=== PATIENT | female | born 1945 | race Caucasian/White ===

== ENCOUNTER 2018-03-30 12:06 | Inpatient (IN) | payer MEDICARE ==
[~2018-03-30] VITALS: Ht 162.6 cm; Wt 53.5 kg
[2018-03-30] MEDS ORDERED: ASPIRIN 81 MG CHEW TAB PO ONE ×2 (13:15→17:15)
[2018-03-30 14:24] LABS: BASOPHILS % 0.9 % (0.0-1.0); EOSINOPHILS % 0.4 % (0.0-6.0); HEMATOCRIT 36.8 % (34.2-44.1); HEMOGLOBIN 12.2 g/dL (12.0-16.0); LYMPHOCYTES # (AUTO) 0.8 (1.0-3.2); LYMPHOCYTES % 16.9 % (18.0-39.1); MEAN CORPUSCULAR HEMOGLOBIN 26.2 pg (28-32); MEAN CORPUSCULAR HGB CONC 33.2 g/dL (31-35); MEAN CORPUSCULAR VOLUME 79.1 fL (81-99); MONOCYTES # (AUTO) 0.3 (0.2-0.8); MONOCYTES % 7.4 % (4.4-11.3); NEUTROPHILS # (AUTO) 3.4 (2.1-6.9); NEUTROPHILS % 74.2 % (38.7-80.0); PLATELET COUNT 282 x10e3/uL (140-360); RED BLOOD COUNT 4.65 x10e6/uL (3.6-5.1); RED CELL DISTRIBUTION WIDTH 13.1 % (11.7-14.4)
[2018-03-30 14:29] LABS: INR 1.11; PARTIAL THROMBOPLASTIN TIME 30.4 seconds (23.8-35.5); PROTHROMBIN TIME 13.5 seconds (11.9-14.5)
[2018-03-30 14:34] LABS: BILIRUBIN,URINE NEGATIVE (NEGATIVE); CLARITY,URINE SL CLOUDY (CLEAR); COLOR,URINE YELLOW (YELLOW); KETONES,URINE NEGATIVE (NEGATIVE); LEUKOCYTE ESTERASE ,URINE TRACE (NEGATIVE); NITRITE,URINE NEGATIVE (NEGATIVE); PROTEIN,URINE DIPSTICK TRACE (NEGATIVE); URINE UROBILINOGEN 0.2 mg/dL (0.2 - 1)
[2018-03-30 14:39] LABS: ALBUMIN 4.1 g/dL (3.5-5.0); ALBUMIN/GLOBULIN RATIO 1.1 (0.8-2.0); ANION GAP 19.4 mmol/L (8-16); CALCIUM 10.6 mg/dL (8.4-10.2); CREATININE, SERUM 2.65 mg/dL (0.57-1.11); POTASSIUM 3.4 mmol/L (3.5-5.1)
[2018-03-30 14:43] LABS: BACTERIA,URINE MANY /HPF
[2018-03-30 14:45] LABS: CREATINE KINASE MB 1.8 ng/mL (0-5.0)
[2018-03-30] MEDS ORDERED: CLONIDINE HCL 0.1 MG TAB PO ONE (14:45)
[2018-03-30 15:32] LABS: FREE T4 (FREE THYROXINE) 1.23 ng/dL (0.9-1.8); THYROID STIMULATING HORMONE 0.05 uIU/mL (0.350-4.940)
[2018-03-30] MEDS ORDERED: CEFTRIAXONE SOD 1 GM VIAL IM ONE (15:45)
[2018-03-30] MEDS ORDERED: OMEPRAZOLE40 MG PO (16:08)
[2018-03-30] MEDS ORDERED: METFORMIN HCL500 MG PO (16:08)
[2018-03-30] MEDS ORDERED: ULTRAM50 MG PO (16:08)
[2018-03-30] MEDS ORDERED: OXYBUTYNIN CHLOR5 MG PO (16:08)
[2018-03-30] MEDS ORDERED: NORCO 5-325 TA1 EACH PO (16:08)
[2018-03-30] MEDS ORDERED: LASIX40 MG PO (16:18)
[2018-03-30] MEDS ORDERED: LEFLUNOMIDE10 MG (16:18)
[2018-03-30] MEDS ORDERED: EDARBYCLOR 40-1 EAC1 (16:18)
[2018-03-30] MEDS ORDERED: COREG12.5 MG PO (16:18)
[2018-03-30] MEDS ORDERED: LEVOTHYROXINE112 MCG PO (16:18)
[2018-03-30] MEDS ORDERED: ASPIRIN81 MG PO (16:18)
[2018-03-30] MEDS ORDERED: PLAVIX75 MG PO (16:18)
[2018-03-30] MEDS ORDERED: TURMERIC1 GM (16:18)
[2018-03-30] MEDS ORDERED: GABAPENTIN100 MG (16:18)
[2018-03-30] MEDS ORDERED: ZETIA10 MG PO (16:18)
[2018-03-30] MEDS ORDERED: SODIUM CHLORIDE 0.9% 1000ML 1,000 ML IV SCH (17:15)
[2018-03-30] MEDS ORDERED: CLONIDINE HCL 0.1 MG TAB PO PRN (17:15)
[2018-03-30] MEDS ORDERED: ONDANSETRON HCL INJ 2 MG/ML VIAL IV PRN (17:15)
--- NOTE | 2018-03-30 18:25 | Diagnostic Imaging Report ---
EXAMINATION: Head CT HISTORY: Ataxia. Weakness. Hypertension, diabetes COMPARISON: None. TECHNIQUE: Multidetector axial images were obtained without contrast from the foramen magnum to the vertex . The images were reconstructed using brain and bone algorithms. Thin section brain images were reformatted into coronal and sagittal planes. Image quality: Motion/streaking artifact limits the evaluation of the skull base and posterior cranial fossa. Dose modulation, iterative reconstruction, and/or weight based adjustment of the mA/kV was utilized to reduce the radiation dose to as low as reasonably achievable. FINDINGS: Parenchyma: 1. Minimal periventricular white matter hypodensities, likely age-related minimal chronic microvascular changes. 2. No mass or hemorrhage. No CT evidence of acute territorial vascular insult. Extra-axial spaces:No abnormal density. No extra-axial fluid collections Brain volume: Normal for age. Ventricles: No hydrocephalus or displacement. Arteries: No density suggestive of thrombus. Dural sinuses: No abnormal density. Extra-axial spaces: No abnormal density. Foramen magnum: No mass, Chiari malformation, or basilar invagination. Sella: No obvious mass. Paranasal/mastoid sinuses: Imaged portions unremarkable. Skull/Scalp: No lytic or blastic lesions. No fractures. IMPRESSION: No acute intracranial abnormality. Particularly no hemorrhage or acute cortical infarct. Signed by: Dr. Jennifer Sandhu M.D. on 03/30/2018 6:21 PM
[2018-03-30 21:00] VITALS: BP 182/107
[2018-03-30] MEDS: CARVEDILOL 3.125 MG TAB PO SCH (21:27)
[2018-03-30 22:00] VITALS: BP 182/107
--- NOTE | 2018-03-30 22:03 | History and Physical ---
REFERRING PHYSICIAN: Dr. Noble Kumari CHIEF COMPLAINT: Ataxia and disorientation. HISTORY OF PRESENT ILLNESS: The patient is a 73-year-old woman. She has a history of coronary artery disease and has required CABG and stent placements previously. She also has a history of hypertension, thyroid disease and possible diabetes. Over the past several days, she has had some stumbling. Apparently she fell a couple of times. She also feels weak and lightheaded. She reports some diarrhea, but denies any abdominal pain or nausea. She has no fevers. The patient came to the emergency department. Her blood test showed an elevated creatinine of 2.65 along with a calcium of 10.6. The patient denies any prior renal problems. PAST SURGICAL HISTORY 1. Status post coronary artery bypass grafting. 2. Status post cardiac stents several years ago. PAST MEDICAL HISTORY 1. Hypertension. 2. Thyroid disease. 3. Coronary artery disease. 4. No prior congestive heart failure. 5. No prior kidney disease. SOCIAL HISTORY: The patient is not a smoker. She is not a drinker. ALLERGIES: THE PATIENT IS ALLERGIC TO PROMETHAZINE AND DIPHENHYDRAMINE. FAMILY HISTORY: Family history is noncontributory. REVIEW OF SYSTEMS: She does report some disorientation along with some lightheadedness. She feels weak. She does not complain of headache. She has no neck pain. She has no chest pain. She has no difficulty breathing. She did have some diarrhea, but no nausea or vomiting. She has no leg edema. She has no focal neurological findings. IMPRESSION 1. Acute kidney injury. 2. Ataxia and frequent fall. 3. Hypercalcemia. 4. Hypertension. 5. Coronary artery disease. 6. Diabetes. PLAN 1. The patient will receive intravenous fluids. 2. Recheck her BUN, creatinine and calcium in the morning. 3. Patient will have an echocardiogram. 4. Repeat EKG and serial enzymes. 5. CT scan of the head. 6. Hold tramadol, [place] or any other medications that may be contributing to unsteadiness. Job#: [id number] [employer]
[2018-03-30] MEDS: ZOLPIDEM TARTRATE 5 MG TAB PO PRN (22:49)
[2018-03-30 23:05] LABS: CREATINE KINASE MB 1.6 ng/mL (0-5.0)
[2018-03-31] VITALS (9 sets, daily range): BP systolic 153–195; BP diastolic 68–92
[2018-03-31] MEDS: CLONIDINE HCL 0.2 MG TAB PO PRN ×2 (04:22→15:52)
[2018-03-31] MEDS: CEFTRIAXONE SOD 1 GM VIAL IV SCH ×2 (04:30→17:00)
[2018-03-31] MEDS: LEVOTHYROXINE SODIUM 112 MCG TAB PO SCH (04:30)
[2018-03-31] MEDS: LEVOTHYROXINE SODIUM 25 MCG TABLET PO SCH (04:30)
[2018-03-31 04:47] LABS: BASOPHILS # (AUTO) 0.1 (0.0-0.1); EOSINOPHILS # (AUTO) 0.1 (0.0-0.4); EOSINOPHILS % 1.4 % (0.0-6.0); HEMATOCRIT 31.9 % (34.2-44.1); HEMOGLOBIN 10.5 g/dL (12.0-16.0); LYMPHOCYTES # (AUTO) 1.4 (1.0-3.2); LYMPHOCYTES % 27.8 % (18.0-39.1); MEAN CORPUSCULAR HEMOGLOBIN 26.2 pg (28-32); MEAN CORPUSCULAR HGB CONC 32.9 g/dL (31-35); MEAN CORPUSCULAR VOLUME 79.6 fL (81-99); MONOCYTES # (AUTO) 0.6 (0.2-0.8); MONOCYTES % 10.7 % (4.4-11.3); NEUTROPHILS % 58.9 % (38.7-80.0); PLATELET COUNT 270 x10e3/uL (140-360); RED BLOOD COUNT 4.01 x10e6/uL (3.6-5.1)
[2018-03-31 05:14] LABS: ALBUMIN 3.7 g/dL (3.5-5.0); ALBUMIN/GLOBULIN RATIO 1.3 (0.8-2.0); ANION GAP 16.6 mmol/L (8-16); CALCIUM 9.5 mg/dL (8.4-10.2); CREATININE, SERUM 1.86 mg/dL (0.57-1.11); POTASSIUM 3.6 mmol/L (3.5-5.1)
[2018-03-31 05:27] LABS: CREATINE KINASE MB 4.9 ng/mL (0-5.0)
[2018-03-31] MEDS ORDERED: POTASSIUM CHLORIDE 20 MEQ TAB CR PO ONE (08:00)
[2018-03-31] MEDS ORDERED: LEVOTHYROXINE SODIUM 112 MCG TAB PO SCH (09:00)
[2018-03-31] MEDS ORDERED: CARVEDILOL 12.5 MG TAB PO SCH (09:00)
[2018-03-31] MEDS: CARVEDILOL 3.125 MG TAB PO SCH ×2 (09:57→17:00)
[2018-03-31] MEDS: PANTOPRAZOLE SOD 40 MG TABEC PO SCH (09:57)
[2018-03-31] MEDS: GABAPENTIN 100 MG CAP PO SCH ×2 (09:57→17:00)
[2018-03-31] MEDS: ASPIRIN 81 MG CHEW TAB PO SCH (09:57)
[2018-03-31] MEDS: EZETIMIBE 10 MG TAB PO SCH (09:57)
[2018-03-31] MEDS: OXYBUTYNIN CHLORIDE 5 MG TAB PO SCH (09:57)
[2018-03-31] MEDS: SODIUM CHLORIDE 0.45% 1,000 ML IV SCH ×2 (09:57→15:30)
[2018-03-31] MEDS: CLOPIDOGREL BISULFATE 75 MG TAB PO SCH (09:57)
[2018-03-31] MEDS ORDERED: LORAZEPAM INJ 2 MG/ML VIAL IV STA (12:08)
--- NOTE | 2018-03-31 12:33 | Consultation ---
DATE OF CONSULTATION: March 31, 2018 CARDIOLOGY CONSULTATION CLINICAL HISTORY: This is a 73-year-old white woman referred by Dr. Hayden Rea for cardiovascular evaluation in the setting of ataxia and disorientation, with history of having previous coronary stenting and coronary artery bypass surgery. This patient has hyperthyroidism treated with I-131. Subsequently, she became hypothyroid and was taking thyroid replacement, followed by Dr. Nola Agustin at [facility]. She, however, lives in [place] and comes here for her doctor's visits. On the way here, she apparently became disoriented, weak, dizzy, unsteady on her feet. She decided to come to our emergency room, where EKG showed sinus rhythm and right bundle-branch block. The left bundle-branch block apparently is chronic and she has had it before. She is being admitted for further evaluation and treatment. Her creatinine was 2.65. PAST MEDICAL HISTORY: Remarkable for multiple coronary stents, a total of 9. Some were done in [place]. Some were done in [place], [place]. Most recently, she was in [place] 5 years ago and had bypass surgery. Since the bypass surgery, she apparently has had no chest pain. She denies any previous myocardial infarction. She does have a chronic left bundle-branch block. There is history of hypertension, the above-mentioned thyroid condition, no prior kidney disease. PERSONAL AND SOCIAL HISTORY: Denies smoking or drinking. ALLERGIES: PROMETHAZINE AND DIPHENHYDRAMINE. FAMILY HISTORY: Noncontributory. REVIEW OF SYSTEMS: Negative. PHYSICAL EXAMINATION GENERAL: She is alert and coherent, appears to be comfortable. VITAL SIGNS: Stable. CARDIAC: Jugular veins are not distended. S1 and S2 were regular. There is no appreciable murmur. LUNGS: Clear. ABDOMEN: Soft. Bowel sounds are present. EXTREMITIES: No cyanosis, clubbing or edema. IMPRESSION 1. Stable cardiovascular status, status post previous coronary artery bypass surgery 5 years ago in [place] and 9 previous stents elsewhere in [place] and in [place], [place]. 2. Hypertension. 3. History of hypothyroidism, treated with I-131, currently hypothyroid. 4. Weight loss and lymphadenopathy requiring a CT scan of the pelvis at [facility]. 5. Chronic kidney disease. Creatinine 2.65. 6. Ataxia, fall, disorientation. 7. Diabetes. 8. Hypercalcemia. RECOMMENDATIONS: Treatment for hypertension. Continue previous cardiac medications. Job#: [id number] cc:HAYDEN REA M.D.
--- NOTE | 2018-03-31 13:39 | Diagnostic Imaging Report ---
Examination: MRI BRAIN WITHOUT CONTRAST History: 73-year-old female with weakness. Comparison studies: Head CT performed March 30, 2018. Technique: Sagittal T2; axial DWI, FLAIR, GRE or SWI, T1, Coronal FLAIR. Intravenous contrast: None Findings: Motion artifact. Scalp: No abnormal signal. No masses. Bone marrow: Normal in signal intensity. Brain volume: Moderate volume loss. Ventricles: No hydrocephalus. Extra-axial spaces: No abnormalities. Parenchyma: There are subtle confluent areas of T2/FLAIR hyperintensity in the periventricular and subcortical white matter, nonspecific. No masses, hemorrhage, acute or chronic vascular insults. Suprasellar and sellar region: No abnormalities. Craniocervical junction: No abnormalities. The foramen magnum is patent. No Chiari malformations. Vessels: Normal flow-voids in the arteries and sinuses. Additional findings:Bilateral slitlike orbital lenses. IMPRESSION: 1. Despite limitation, no acute intracranial abnormality. 2. Mild chronic microvascular ischemic change Signed by: Dr. Shayy Javed M.D. on 03/31/2018 1:35 PM
--- NOTE | 2018-03-31 14:49 | Consultation ---
DATE OF CONSULTATION: March 31, 2018 NEUROLOGY CONSULTATION HISTORY OF PRESENT ILLNESS: Ms. Wasserman is a 73-year-old, [id number] woman with past medical history significant for hypertension, hyperlipidemia, diabetes mellitus type 2, and coronary artery disease admitted to [facility] on March 30, 2018, with worsening confusion and generalized weakness. Approximately 2 weeks ago, the patient's family members noted the gradual onset of generalized weakness, impairment of balance and an unsteady gait secondary to generalized weakness, and confusion. When asked for further details regarding the patient's confusion, her sister reports the patient was having difficulty recalling which family members she was visiting, repetition of questions, and confusion regarding medications. According to the patient and her sister, this confusion is highly atypical of the patient. Other symptoms reported by the patient include pain with urination, urinary frequency, possible bladder dysfunction, and diarrhea. As stated above, these symptoms began approximately 2 weeks ago and have gradually worsened during that time. Ms. Wasserman was brought to the [facility] on March 30, 2018, for further evaluation of her symptoms. Upon arrival in the Emergency Center, the patient was afebrile with a blood pressure of 177/113 mmHg and a pulse of 104 beats per minute. Her neurological examination was documented as being nonfocal. A CT of the brain without contrast was performed while the patient was in the Emergency Center. This study did not reveal large territorial ischemia or hemorrhage. Ms. Wasserman was admitted to [facility] on March 30, 2018, as an inpatient for further evaluation and treatment of her symptoms. REVIEW OF SYSTEMS: Diarrhea, pain with urination, urinary urgency, confusion, generalized weakness, impairment of balance and gait, neck pain. Otherwise, the 12-point review of systems is negative. PAST MEDICAL HISTORY: Hypertension, hyperlipidemia, diabetes mellitus type 2, coronary artery disease, thyroid disease, osteoarthritis, gastroesophageal reflux disease, anxiety disorder, fibromyalgia, obstructive sleep apnea. PAST SURGICAL HISTORY: Multiple cardiac stents, 1-vessel CABG, total hysterectomy, cholecystectomy, appendectomy, bilateral cataract removal. PAST HOSPITALIZATIONS: For surgeries/procedures as listed, hypothyroidism, childbirth times 2. FAMILY MEDICAL HISTORY: Patient's sister reports a strong family medical history of hypertension, hyperlipidemia, and coronary artery disease. Patient's paternal and maternal grandparents are . Their medical histories are unknown. The patient's father is from coronary artery disease with myocardial infarction. Her mother is from bladder cancer. Ms. Wasserman had 5 siblings, 2 brothers and 3 sisters. One sister is alive and healthy. The remaining siblings are . Two brothers are from coronary artery disease with myocardial infarctions. One sister is from coronary artery disease. A 2nd sister is from a pulmonary embolus. Ms. Wasserman has 2 daughters, both of whom are alive and healthy. SOCIAL HISTORY: Patient is . She is retired. Ms. Wasserman does not report current or prior tobacco, alcohol, or recreational drug use. HOME MEDICATIONS: Please see the list available on the electronic medical record system. ALLERGIES: BENADRYL, PHENERGAN. NO KNOWN FOOD ALLERGIES. NO KNOWN ALLERGY TO LATEX. NO KNOWN ALLERGIES TO IODINE OR OTHER CONTRAST MATERIALS. PHYSICAL EXAMINATION VITAL SIGNS: Height 64 inches, weight 116 pounds. BMI 19.9 kg per meter squared. Blood pressure 186/92 mmHg. Pulse 78 beats per minute. Respiratory rate 17 breaths per minute. Oxygen saturation 97% on room air. GENERAL: The patient is awake and alert. Does not appear distressed. HEENT: Normocephalic, atraumatic. Pupils are surgical. Moist mucous membranes. NECK: Supple. No appreciable thyromegaly. No appreciable carotid bruits. CARDIOVASCULAR: S1 and S2, regular rate and rhythm. Positive systolic ejection murmur. RESPIRATORY: Clear to auscultation bilaterally. No wheezes, rhonchi or rales. EXTREMITIES: The skin is warm and dry. No clubbing, cyanosis, or edema. The posterior tibial and dorsalis pedis pulses are 1+ and symmetric. SKIN: No rashes or lesions. NEUROLOGIC EXAMINATION MEMORY/ATTENTION: The patient is awake and alert. Oriented to person, place (hospital, city, state), time (month, year), and situation. CRANIAL NERVES: Cranial nerve I: Not tested. Cranial nerves II, III, IV, and : Pupils are surgical. Extraocular movements intact. No nystagmus. Cranial nerve V: Sensation to light touch and pinprick is intact in the bilateral V1 through V3 distributions. Strength of the temporalis and masseter muscles is within normal limits. Cranial nerve VII: The face is symmetric as are all facial movements. Strength is within normal limits. Cranial nerve VIII: Hearing is diminished to finger rub bilaterally. Cranial nerves IX and X: The soft palate elevates equally and symmetrically. Cranial nerve XI: Normal strength of the bilateral sternocleidomastoid and trapezius muscles. Cranial nerve XII: The tongue protrudes midline and moves symmetrically from side to side. STRENGTH: Bulk is normal. Strength is 5/5 in the bilateral deltoids, biceps, triceps, wrist flexors and extensors, finger flexors and extensors, intrinsic hand muscles, hip flexors, knee flexors and extensors, ankle dorsiflexion and plantar flexion, and intrinsic foot muscles. Tone is normal. DTRs: Deep tendon reflexes are 2+ and symmetric at the triceps, biceps, brachioradialis, and patellas. Deep tendon reflexes are absent and symmetric at the Achilles. Plantar responses are flexor bilaterally. SENSATION: Sensation is intact to light touch and pinprick in both arms and both legs. CEREBELLAR: Zutaei-wmse-qqdthz and heel-engel movements are intact without dysmetria or other impairment. GAIT: Deferred. SPEECH: Spontaneous speech is normal without appreciable dysarthria or aphasia. Repetition is intact. INVOLUNTARY MOVEMENTS: None. PRONATOR DRIFT: Right arm. LABORATORY DATA: The patient's complete metabolic panel is significant for an elevated anion gap of 16.6, an elevated BUN of 36, an elevated creatinine of 1.86, and estimated GFR of 26. The alkaline phosphatase is mildly decreased at 38. Lactic acid is 9.3. Cardiac enzymes are negative times 3 with the exception of an elevated creatine kinase of 219 on the 3rd set of cardiac enzymes. Total cholesterol is 290, triglycerides 181, LDL cholesterol 196, HDL cholesterol 58. TSH 0.050. Free T4 is 1.23. The CBC with differential and platelets reveals a white blood cell count of 5.15 with a normal differential. The hemoglobin and hematocrit are 10.5 and 31.9, respectively. The platelet count is 270. The coagulation profile is within normal limits. Urinalysis revealed trace protein, 1+ blood, trace leukocyte esterase, 11-20 red blood cells, 6-10 white blood cells, no epithelials cells, and many bacteria. A urine culture has grown gram-negative bacilli. Blood cultures drawn on March 30, 2018, are pending. DIAGNOSTIC STUDIES 1. Electrocardiogram, 03/30/2018: Normal sinus rhythm at 87 beats per minute with sinus arrhythmia, left bundle-branch block. 2. CT of the brain without contrast, 03/30/2018: On my review, there is no evidence of recent large territorial ischemia, hemorrhage, mass, or mass effect. Cerebral volumes are appropriate for age. There are findings compatible with mild chronic small vessel ischemic disease. ASSESSMENT AND PLAN: Ms. Wasserman is a 73-year-old ueboo-wjid-aqpjpqzq woman with past medical history as documented admitted to [facility] on March 30, 2018, with confusion, generalized weakness, and gait and balance impairment gradually worsening over a period of two weeks. Patient's neurological examination is nonfocal with the exception of pronator drift in the right arm. Her laboratory data and other diagnostic studies have been reviewed and are documented above. Given the general nature of the patient's symptoms, I would attribute them to a metabolic encephalopathy secondary to urinary tract infection with or without superimposed acute kidney injury. However, the presence of pronator drift in the right arm is suggestive of central nervous system pathology, probably a stroke given the patient's multiple vascular risk factors. RECOMMENDATIONS 1. An MRI of the brain without contrast will be ordered due to the presence of pronator drift in the right arm. 2. Additional laboratory data will be ordered to evaluate for other treatable causes of confusion. These studies will include: Ammonia level, vitamin B1 level, vitamin B12 level, and rapid plasma reagin. 3. Limit the use of sedative/hypnotic and pain medications as these medicines are known to alter the patient's sensorium. 4. Utilize environmental cues to prevent the occurrence of delirium. 5. Defer treatment of the remaining medical comorbidities to the primary and other services following the patient. Thank you for this consultation. I will continue to follow the patient while she remains in the hospital. Time spent: 70 minutes. Job#: [id number] LUIS BANKS
--- NOTE | 2018-03-31 17:20 | Cardiology Report ---
DATE OF STUDY: March 30, 2018 ECHOCARDIOGRAM M-MODE: Top normal left atrial size. Normal left ventricular wall thickness. Diminished left ventricular contractility. Paradoxical septal wall motion. Normal mitral and aortic valves. No pericardial effusion. SECTOR SCAN: Top normal left atrial size. Normal left ventricular wall thickness. Diminished left ventricular contractility. Ejection fraction 35% to 40%. Mitral valve appears to be normal. Aortic valve is sclerotic. Tricuspid valve appears to be normal. There is no pericardial effusion. CARDIAC DOPPLER STUDY WITH COLOR: Evidence of diastolic dysfunction. Trace mitral and tricuspid regurgitation. Aortic velocity is 1.4 meters per second. CONCLUSIONS 1. Suboptimal study with poor image quality. 2. Left ventricular ejection fraction is approximately 35% to 40%. 3. Borderline left ventricular hypertrophy. 4. Aortic sclerosis without stenosis. 5. Trace mitral and tricuspid regurgitation. 6. Top normal left atrial size. 7. Evidence of diastolic dysfunction. Job#: [id number] cc:ZELALEM JOHN M.D.
[2018-04-01] VITALS (8 sets, daily range): BP systolic 128–193; BP diastolic 74–100
[2018-04-01] MEDS: SODIUM CHLORIDE 0.45% 1,000 ML IV SCH ×4 (00:42→23:30)
[2018-04-01] MEDS: ZOLPIDEM TARTRATE 5 MG TAB PO PRN ×2 (00:56→22:36)
[2018-04-01 05:19] LABS: BASOPHILS % 0.9 % (0.0-1.0); EOSINOPHILS # (AUTO) 0.1 (0.0-0.4); EOSINOPHILS % 2.2 % (0.0-6.0); HEMATOCRIT 31.1 % (34.2-44.1); HEMOGLOBIN 10.2 g/dL (12.0-16.0); LYMPHOCYTES # (AUTO) 1.5 (1.0-3.2); LYMPHOCYTES % 32.5 % (18.0-39.1); MEAN CORPUSCULAR HEMOGLOBIN 26.3 pg (28-32); MEAN CORPUSCULAR HGB CONC 32.8 g/dL (31-35); MEAN CORPUSCULAR VOLUME 80.2 fL (81-99); MONOCYTES # (AUTO) 0.5 (0.2-0.8); NEUTROPHILS # (AUTO) 2.5 (2.1-6.9); NEUTROPHILS % 54.2 % (38.7-80.0); PLATELET COUNT 254 x10e3/uL (140-360); RED BLOOD COUNT 3.88 x10e6/uL (3.6-5.1); RED CELL DISTRIBUTION WIDTH 13.1 % (11.7-14.4)
[2018-04-01 05:50] LABS: ALBUMIN 3.6 g/dL (3.5-5.0); ALBUMIN/GLOBULIN RATIO 1.3 (0.8-2.0); ANION GAP 15.4 mmol/L (8-16); CALCIUM 9.2 mg/dL (8.4-10.2); CREATININE, SERUM 1.21 mg/dL (0.57-1.11); POTASSIUM 3.4 mmol/L (3.5-5.1)
[2018-04-01] MEDS: LEVOTHYROXINE SODIUM 25 MCG TABLET PO SCH (06:21)
[2018-04-01] MEDS: LEVOTHYROXINE SODIUM 112 MCG TAB PO SCH (06:21)
[2018-04-01] MEDS ORDERED: POTASSIUM CHLORIDE 20 MEQ TAB CR PO NR (07:45)
[2018-04-01] MEDS: CARVEDILOL 3.125 MG TAB PO SCH ×2 (08:03→17:00)
[2018-04-01] MEDS: OXYBUTYNIN CHLORIDE 5 MG TAB PO SCH (08:03)
[2018-04-01] MEDS: GABAPENTIN 100 MG CAP PO SCH ×2 (08:03→17:01)
[2018-04-01] MEDS: ASPIRIN 81 MG CHEW TAB PO SCH (08:03)
[2018-04-01] MEDS: CEFTRIAXONE SOD 1 GM VIAL IV SCH ×2 (08:03→17:00)
[2018-04-01] MEDS: CLOPIDOGREL BISULFATE 75 MG TAB PO SCH (08:03)
[2018-04-01] MEDS: PANTOPRAZOLE SOD 40 MG TABEC PO SCH (08:03)
[2018-04-01] MEDS: EZETIMIBE 10 MG TAB PO SCH (08:04)
--- NOTE | 2018-04-01 08:13 | Progress Note ---
DATE: 04/01/2018 SUBJECTIVE: The patient feels better with hydration. Her diarrhea has improved although she reports history of chronic gastrointestinal problems. She did see professional poker player several years ago and is scheduled to see another one as an outpatient. The patient was evaluated by cardiology and neurology yesterday. The neurologist detected a pronator drift and recommended an MRI. This has been done, but the results from the radiologist are still pending. OBJECTIVE: VITALS: The patient is afebrile. The vital signs are stable. HEENT: Shows no facial swelling or erythema. The oropharynx is normal. LYMPHATIC: Shows no submandibular, subacromial, supraclavicular adenopathy. CARDIAC: Regular rate and rhythm with normal S1 and S2. There are no murmurs or rubs seen on auscultation. LUNGS: Reveal clear breath sounds bilaterally. ABDOMEN: Soft and nontender. There is no rebound, no guarding. EXTREMITIES: No leg edema or calf tenderness. There is no cyanosis or clubbing. SKIN: No rashes. IMPRESSION: 1. Urinary tract infection with gram-negative rods and sepsis. 2. Acute kidney injury. 3. Metabolic encephalopathy. 4. Coronary artery disease. 5. Chronic gastrointestinal problems. PLAN: 1. Continue current antibiotics and IV hydration. 2. Await results of MRI. 3. Repeat BUN, creatinine, and electrolytes tomorrow. 4. Tentative discharge tomorrow. 5. Nutritional evaluation by dietary. 6. Gastroenterology evaluation as an outpatient. Job#: [id number] ABISAI BANKS
[2018-04-01] MEDS: CLONIDINE HCL 0.2 MG TAB PO PRN (11:55)
[2018-04-02] VITALS (7 sets, daily range): BP systolic 154–170; BP diastolic 75–99
[2018-04-02] MEDS: LEVOTHYROXINE SODIUM 112 MCG TAB PO SCH (05:07)
[2018-04-02] MEDS: LEVOTHYROXINE SODIUM 25 MCG TABLET PO SCH (05:07)
[2018-04-02] MEDS: CEFTRIAXONE SOD 1 GM VIAL IV SCH ×2 (05:07→16:26)
[2018-04-02 05:24] LABS: BASOPHILS # (AUTO) 0.1 (0.0-0.1); BASOPHILS % 1.1 % (0.0-1.0); EOSINOPHILS # (AUTO) 0.1 (0.0-0.4); EOSINOPHILS % 2.7 % (0.0-6.0); HEMATOCRIT 33.6 % (34.2-44.1); HEMOGLOBIN 10.9 g/dL (12.0-16.0); LYMPHOCYTES # (AUTO) 1.8 (1.0-3.2); LYMPHOCYTES % 34.3 % (18.0-39.1); MEAN CORPUSCULAR HEMOGLOBIN 26.3 pg (28-32); MEAN CORPUSCULAR HGB CONC 32.4 g/dL (31-35); MONOCYTES # (AUTO) 0.5 (0.2-0.8); MONOCYTES % 9.7 % (4.4-11.3); NEUTROPHILS # (AUTO) 2.7 (2.1-6.9); NEUTROPHILS % 51.6 % (38.7-80.0); PLATELET COUNT 266 x10e3/uL (140-360); RED BLOOD COUNT 4.15 x10e6/uL (3.6-5.1); RED CELL DISTRIBUTION WIDTH 12.9 % (11.7-14.4)
[2018-04-02 05:47] LABS: ALBUMIN 3.8 g/dL (3.5-5.0); ALBUMIN/GLOBULIN RATIO 1.3 (0.8-2.0); ANION GAP 15.9 mmol/L (8-16); CALCIUM 9.4 mg/dL (8.4-10.2); CREATININE, SERUM 1.14 mg/dL (0.57-1.11); MAGNESIUM 1.6 MG/DL (1.3-2.1); POTASSIUM 3.9 mmol/L (3.5-5.1)
--- NOTE | 2018-04-02 09:02 | Progress Note ---
DATE: 04/02/18 The patient feels better. She still complains of diarrhea. She states that the diarrhea has been ongoing for some time, and she has lost 20-30 pounds. She does not complain of fever or abdominal pain. PHYSICAL EXAMINATION VITALS: The patient is afebrile. The vital signs are stable. HEENT: Shows no facial swelling or edema. CARDIAC: Reveals a regular rate and rhythm with a normal S1 and S2. LUNGS: Auscultation of the lungs reveals clear breath sounds bilaterally. ABDOMEN: Soft and tender. There is no rebound or guarding. EXTREMITIES: Shows no leg edema or calf tenderness. RADIOGRAPHIC DATA: MRI shows some microvascular disease, but no evidence of stroke. IMPRESSION 1. Subacute diarrhea with weight loss. 2. Moderate protein calorie malnutrition. 3. Urinary tract infection with Escherichia coli and secondary sepsis. 4. Acute kidney injury. 5. Metabolic encephalopathy. 6. Anemia, unspecified. 7. Ataxia. PLAN 1. The patient will be evaluated by gastroenterology. 2. We are awaiting completion of her nutritional evaluation. 3. Continue IV fluids. 4. Continue antibiotics. 5. Physical therapy and out of bed as tolerated. The case was discussed with the patient and family. Job#: [id number] BRIDGER BANKS
[2018-04-02] MEDS: ASPIRIN 81 MG CHEW TAB PO SCH (09:05)
[2018-04-02] MEDS: PANTOPRAZOLE SOD 40 MG TABEC PO SCH (09:05)
[2018-04-02] MEDS: EZETIMIBE 10 MG TAB PO SCH (09:06)
[2018-04-02] MEDS: CLOPIDOGREL BISULFATE 75 MG TAB PO SCH (09:06)
[2018-04-02] MEDS: OXYBUTYNIN CHLORIDE 5 MG TAB PO SCH (09:06)
[2018-04-02] MEDS: GABAPENTIN 100 MG CAP PO SCH ×2 (09:06→16:26)
[2018-04-02] MEDS: CARVEDILOL 3.125 MG TAB PO SCH ×2 (09:06→16:26)
[2018-04-02] MEDS: SODIUM CHLORIDE 0.45% 1,000 ML IV SCH ×2 (10:13→15:30)
[2018-04-02] MEDS: SUCRALFATE 1 GM TAB PO SCH ×2 (11:58→16:26)
[2018-04-02] MEDS: CLONIDINE HCL 0.2 MG TAB PO PRN (12:37)
--- NOTE | 2018-04-02 17:29 | Consultation ---
DATE OF CONSULTATION: April 01, 2018 She is a 73-year-old lady with a past history of coronary artery disease, status post cardiac stents, status post cardiac bypass, hyperthyroid disease, previous myocardial infarction, hypertension, diabetes. She was admitted with symptoms of ataxia and unsteady gait. Evaluated by neurology. I was asked to see her for weight loss, recent of 40 pounds since September of this year, nausea and vomiting, heartburn, acid reflux, and loose bowel movements up to 3-5 a day, liquid. No blood, but she described it as black stool. No recent use of antibiotics. She does not feel bloated. She has not felt gassy or passing a lot of gas. She claimed a year ago she had some upper or maybe lower endoscopy done by GI, Dr. Scott at [phone]. She does not recall any results. SOCIAL HISTORY: Does not smoke or drink. FAMILY HISTORY: Hyperlipidemia, coronary artery disease. SURGICAL HISTORY: She had a complete hysterectomy, open cholecystectomy, appendectomy, and bilateral cataracts in addition to her heart surgery. ALLERGIES: SHE IS ALLERGIC TO PROMETHAZINE AND DIPHENHYDRAMINE. CURRENT MEDICATIONS: Clonidine, Protonix, Carafate, Coreg, Ditropan, Neurontin, Zetia, Rocephin, Synthroid, Zofran, and Ambien. PHYSICAL EXAMINATION GENERAL: Awake, alert and oriented. VITALS: Temperature 96.8, pulse 86, respiratory rate 21, blood pressure 162/92. HEENT: Normal sclerae. NECK: Supple. No nodes or mass. LUNGS: Clear to auscultation. HEART: Regular. Occasional irregular beat. ABDOMEN: Soft and nontender. No masses. No acute signs. No organomegaly. Bowel sounds present. EXTREMITIES: No edema. INSPECTOR FILTER TIP: Motor function grossly intact. LABS: Hemoglobin 10, hematocrit 33. White cell count 5 and platelets 266,000. RPR negative. Urine culture positive for E. coli. Blood culture negative. B12 normal. Comprehensive panel normal, except for creatinine of 1.14 and GFR 47. PT and PTT normal. TSH is low. IMPRESSION: A 40-pound weight loss, alarming complaint. Will review her records from the gastroenterology from last year to make sure she had a full colonoscopy. In addition, will schedule her for computerized tomography of the abdomen with contrast. Her GFR is 47. According to the radiology service, they have hydrate her first hoping to improve her GFR before they give her Iodine. As far as the diarrhea is concerned, it could be related to previous cholecystectomy or could be related to infectious process. PLAN: For her, is to check her fecal leukocytes, fecal calprotectin, fecal ova and parasites, fecal culture, fecal Clostridium difficile. Start her on Questran 1 packet twice a day. Start on probiotic. As far as the anemia is concerned, will obtain iron study, reticulocyte, and RBC and folate. Again, will review her GI workup. As far as the melanotic stool, will guaiac the stool. Nothing to do for now unless she has drop in hemoglobin and hematocrit. Otherwise, we can repeat her upper endoscopy and could be done an elective basis. Job#: [id number] BRIDGER
[2018-04-02] MEDS: LACTOBACILLUS ACIDOPHILUS CAPSULE PO SCH (17:31)
[2018-04-02] MEDS: CHOLESTYRAMINE 4 GM PACKET PO SCH (17:31)
[2018-04-02 17:44] LABS: FERRITIN 55.35 ng/mL (4.63-204.00)
[2018-04-02] MEDS ORDERED: SODIUM CHLORIDE 0.9% 50ML 50 ML ONE (18:26)
[2018-04-02] MEDS ORDERED: IOPAMIDOL 370 MG/ML 200 ML INFUS..BTL INJ ONE (18:26)
--- NOTE | 2018-04-02 20:25 | Diagnostic Imaging Report ---
EXAM: CT Abdomen and Pelvis WITH contrast INDICATION: \S\40 lb weight loss \S\[id number] \S\1952 COMPARISON: None. TECHNIQUE: Abdomen and pelvis were scanned utilizing a multidetector helical scanner from the lung base to the pubic symphysis after administration of IV contrast. Coronal and sagittal reformations were obtained. Dose modulation, iterative reconstruction, and/or weight based adjustment of the mA/kV was utilized to reduce the radiation dose to as low as reasonably achievable. Routine protocol was performed. Scan was performed when during portal venous phase. IV CONTRAST: 100 mL of Isovue-370 ORAL CONTRAST: Water COMPLICATIONS: None RADIATION DOSE: Total DLP: 367.4 mGy*cm Estimated effective dose: (DLP x 0.015 x size factor) mSv CTDIvol has been reviewed. It is below the limits set by the Radiation Protocol Committee (RPC). FINDINGS: LINES and TUBES: None. LOWER THORAX: Unremarkable HEPATOBILIARY: No focal hepatic lesions. Subcapsular posterior right hepatic lobe calcified granuloma. No biliary ductal dilation. GALLBLADDER: Surgically absent. SPLEEN: No splenomegaly. PANCREAS: No focal masses or ductal dilatation. ADRENALS: No adrenal nodules KIDNEYS/URETERS: Kidneys enhance symmetrically. No hydronephrosis. No cystic or solid mass lesions. No stones. GI TRACT: No abnormal distention, wall thickening, or evidence of bowel obstruction. Appendix is not visualized. PELVIC ORGANS/BLADDER: Hysterectomy. Bladder is unremarkable. LYMPH NODES: No lymphadenopathy. VESSELS: There is mild atherosclerotic disease in the aorta and major arterial branches. PERITONEUM / RETROPERITONEUM: No free air or fluid. BONES: Unremarkable. SOFT TISSUES: Unremarkable. IMPRESSION: 1. No acute inflammatory process or definite evidence of malignancy in the abdomen/pelvis. Signed by: Dr. Kadeem Lam MD on 04/02/2018 8:20 PM
[2018-04-02] MEDS: ZOLPIDEM TARTRATE 5 MG TAB PO PRN (21:41)
[2018-04-03] VITALS (7 sets, daily range): BP systolic 149–196; BP diastolic 81–98
[2018-04-03] MEDS: SODIUM CHLORIDE 0.45% 1,000 ML IV SCH (03:10)
[2018-04-03] MEDS: CEFTRIAXONE SOD 1 GM VIAL IV SCH (05:00)
[2018-04-03] MEDS: LEVOTHYROXINE SODIUM 25 MCG TABLET PO SCH (05:26)
[2018-04-03] MEDS: LEVOTHYROXINE SODIUM 112 MCG TAB PO SCH (05:26)
[2018-04-03] MEDS: PANTOPRAZOLE SOD 40 MG TABEC PO SCH (08:34)
[2018-04-03] MEDS: OXYBUTYNIN CHLORIDE 5 MG TAB PO SCH (08:34)
[2018-04-03] MEDS: CHOLESTYRAMINE 4 GM PACKET PO SCH (08:34)
[2018-04-03] MEDS: ASPIRIN 81 MG CHEW TAB PO SCH (08:34)
[2018-04-03] MEDS: SUCRALFATE 1 GM TAB PO SCH (08:34)
[2018-04-03] MEDS: EZETIMIBE 10 MG TAB PO SCH (08:34)
[2018-04-03] MEDS: CLOPIDOGREL BISULFATE 75 MG TAB PO SCH (08:34)
[2018-04-03] MEDS: GABAPENTIN 100 MG CAP PO SCH (08:34)
[2018-04-03] MEDS: LACTOBACILLUS ACIDOPHILUS CAPSULE PO SCH (08:34)
[2018-04-03] MEDS: CARVEDILOL 3.125 MG TAB PO SCH (08:35)
[2018-04-03] MEDS ORDERED: CEFTIN PO (09:50)
--- NOTE | 2018-04-03 13:07 | Discharge Summary ---
DISCHARGE DIAGNOSES 1. Acute kidney injury. 2. Metabolic encephalopathy. 3. Urinary tract infection with sepsis. 4. Moderate protein-calorie malnutrition. 5. Chronic diarrhea. 6. Hypertension. CONSULTING PHYSICIANS 1. Dr. Ortiz of neurology. 2. Dr. Dumont of cardiology. 3. Dr. Nguyen of gastroenterology. RADIOGRAPHIC STUDIES 1. Abdominal and pelvic CT showed no active disease. 2. MRI of the brain showed some chronic mild microvascular changes. HISTORY OF PRESENT ILLNESS: The patient is a 73-year-old woman. She came in complaining of malaise and unsteady gait. She had fallen several times. She did not report any fever or focal neurological deficits. On evaluation in the ER, she was found to have an elevated creatinine. She subsequently confirmed a history of diarrhea. Apparently, this has been going on for months. She did have a negative upper and lower endoscopy about a year ago. HOSPITAL COURSE: The patient was admitted. She received IV fluids. Her creatinine improved with this. She also had a neurological evaluation. She had a CT scan and MRI that only showed some microvascular changes. Her ataxia and metabolic encephalopathy resolved with titration. The patient had some pyuria. She was started on antibiotics. Her urine subsequently grew out E. coli. The patient was also seen by GI because of her diarrhea. Abdominal and pelvic CT scan was ordered, and she will need to follow up with Dr. Nguyen as an outpatient for possible repeat colonoscopy and further evaluation of her diarrhea. DISPOSITION: The patient will be discharged home. She will follow up with Dr. Nguyen. Because she has relocated to this area, she will make arrangements for a new PCP. I have contacted Dr. Zelaya, and he will accept the patient in followup. ZELALEM JOHN MD Job#: [id number] cc:MD KALEIGH LY
--- NOTE | 2018-04-04 14:44 | Progress Note ---
DATE: April 03, 2018 Ms. Wasserman is doing well. She was started on Questran the night before. According to the nursing staff, she has reported no bowel movement since last night. She is tolerating her diet well. She had a CT scan of the abdomen with and without contrast because of her severe weight loss which was unremarkable. Anemia, hemoglobin 13 and hematocrit 33. Her iron saturation is normal. RBC is 4. Weight is still pending. Her B12 is normal. Hemodynamically stable. Afebrile. Nothing to add from a GI standpoint at this point except the patient can be discharged and followed as an outpatient. We still need to get a copy of her colonoscopy from the GI doctor who did it a while back to make sure it was done. Job#: [id number]
[2018-04-05 14:37] LABS: WBC,FECAL (FECAL LACTOFERRIN) NEGATIVE (NEGATIVE)
[2018-04-06 11:01] LABS: C DIFFICILE TOXIN A&B AMP PROB NEGATIVE (NEGATIVE)
== END 2018-04-03 11:30 | disposition home or self-care (01) | DRG 871 ==
LOC: ER 12:06 → ERHOLD 18:16 → IMCU 19:42 → OBSVTOIN 03-31 07:24 → MED/SURG3 03-31 16:56
PROVIDERS: ADMIT Internal Medicine Critical Care Medicine; ATTEND Internal Medicine Critical Care Medicine
DX: A41.51 Sepsis due to Escherichia coli [E. coli] (principal); G93.41 Metabolic encephalopathy; N17.9 Acute kidney failure, unspecified; E44.0 Moderate protein-calorie malnutrition; K50.918 Crohn's disease, unspecified, with other complication; J96.11 Chronic respiratory failure with hypoxia; E86.1 Hypovolemia; R27.0 Ataxia, unspecified; Z91.81 History of falling; I25.10 Atherosclerotic heart disease of native coronary artery without angina pectoris; E83.52 Hypercalcemia; N18.9 Chronic kidney disease, unspecified; Z95.5 Presence of coronary angioplasty implant and graft; Z95.1 Presence of aortocoronary bypass graft; R65.20 Severe sepsis without septic shock; N31.9 Neuromuscular dysfunction of bladder, unspecified; E11.22 Type 2 diabetes mellitus with diabetic chronic kidney disease; G47.33 Obstructive sleep apnea (adult) (pediatric); F41.9 Anxiety disorder, unspecified; E05.90 Thyrotoxicosis, unspecified without thyrotoxic crisis or storm; I25.2 Old myocardial infarction; I12.9 Hypertensive chronic kidney disease with stage 1 through stage 4 chronic kidney disease, or unspecified chronic kidney disease; D64.9 Anemia, unspecified
CPT/HCPCS: 36415; 70450; 70551; 74177; 80053; 80061; 81001; 82140; 82550; 82553; 82607; 82728; 82747; 82948; 83540; 83605; 83630; 83735; 83993; 84425; 84439; 84443; 84466; 84484; 85025; 85045; 85610; 85730; 86592; 87040; 87045; 87086; 87177; 87186; 87328; 87493; 93005; 93306; 96361; 99284; G0378; J0696; J2060; J2405; J7030; Q9967